=== PATIENT | female | born 1935 | race Caucasian/White ===

== ENCOUNTER 2018-11-17 17:31 | Observation (INO) | payer BC, MEDICARE ==
[2018-11-17 18:13] LABS: Urine Bilirubin Negative (NEGATIVE); Urine Blood 250 /ul (NEGATIVE); Urine Ketone Large mg/dL (NEGATIVE); Urine Protein 100 mg/dL (NEGATIVE); Urine Specific Gravity 1.025 SP.GR. (1.005-1.010); Urine Urobilinogen Normal (NORMAL)
[2018-11-17] MEDS ORDERED: NORMAL SALINE 1,000 ML IV ONE (18:13)
[2018-11-17] MEDS ORDERED: ONDANSETRON HCL/PF 2 MG/ML VIAL IV ONE (18:13)
--- NOTE | 2018-11-17 18:20 | ERNOTE ---
Medical Problem HPI - Narrative Date of Service: 11/17/18 - General Chief Complaint: Nausea/Vomiting Time Seen by Provider: 11/17/18 18:07 Source: patient, family, RN notes reviewed Exam Limitations: no limitations - Immun/Allergies/Home Medications Immunizations: IMMUNIZATION HX Immunizations Up to Date No History of Influenza Vaccine No Hx Pneumococcal Vaccination No Allergies/Adverse Reactions: Allergies Sulfa (Sulfonamide Antibiotics) Allergy (Unknown, Verified 11/02/18 13:05) atorvastatin calcium [From Lipitor] Adverse Reaction (Mild, Verified 11/02/18 13:05) LEG CRAMPS ciprofloxacin Adverse Reaction (Mild, Verified 11/02/18 13:05) JOINT PAIN doxycycline Adverse Reaction (Mild, Verified 11/02/18 13:05) JOINT PAIN Home Medications: HOME MEDICATIONS Cholecalciferol (Vitamin D3) [Vitamin D3] 10,000 unit PO DAILY 05/06/16 [Last Taken Unknown] Magnesium 250 mg PO DAILY 05/06/16 [Last Taken Unknown] Multivit-Min/FA/Lycopen/Lutein [Centrum Silver Tablet] 1 ea PO DAILY 05/06/16 [Last Taken Unknown] Polyethylene Glycol 3350 [Miralax] 0.5 tsp PO DAILY 05/06/16 [Last Taken Unknown] Ondansetron [Zofran Odt] 4 mg PO Q6H PRN #20 tab 11/02/16 [Last Taken Unknown] Nitrofurantoin/Nitrofuran Mac [Macrobid] 100 mg PO Q12H #10 cap 10/25/18 [Last Taken Unknown] - History of Present History Narrative: Mikki is a 83 year old female brought to the ED by her family for nausea and vomiting that began 2 days ago. She is also having urinary frequency and chills. She has urinated several times since arrival, all in small amounts. Date (Duration): 11/15/18 Review of Systems - Review of Systems Constitutional: Present: chills, malaise, decreased activity level EYE: Present: no symptoms reported ENT: Absent: nose congestion, sore throat Respiratory: Present: cough. Absent: shortness of breath Cardiology: Absent: chest pain, palpitations Gastrointestinal/Abdominal: Present: nausea, vomiting, eating less, drinking less. Absent: diarrhea, abdominal pain Genitourinary: Present: frequency, dysuria. Absent: hematuria Musculoskeletal: Present: joint pain - hip - chronic. Absent: back pain Skin: Absent: lesions, lumps, change in color Neurological: Absent: headache, dizziness/light-headedness Endocrine: Present: no symptoms reported Hematologic/Lymphatic: Present: no symptoms reported Psych: Present: no symptoms reported Medical History (Last Reviewed 11/17/18 @ 18:19 by Michelle Magdaleno NP) Peptic ulcer (Chronic) Onset Date: ~1973 with stomach resection with vagotomy Osteoporosis (Chronic) Onset Date: ~2004 Hypothyroidism (Chronic) Onset Date: Unknown Hyperthyroidism (Chronic) Onset Date: ~2003 Hyperlipidemia (Chronic) Onset Date: ~2004 History of bone density study (Chronic) Onset Date: ~02/2002 t -2.8 sp, -2.6 hip Anemia (Chronic) Onset Date: ~2003 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 Radius distal fracture Onset Date: ~12/02/11 right Surgical History: Surgical History (Last Reviewed 11/17/18 @ 18:19 by Michelle Magdaleno NP) H/O abdominal surgery Onset Date: ~1973 Stomach resection with vagotomy right peptic ulcer disease History of bladder suspension procedure Onset Date: ~01/1986 History of gastric surgery Onset Date: ~03/22/12 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 Dr. Salgado History of hysterectomy Onset Date: ~08/1982 Hx laparoscopic cholecystectomy Onset Date: ~03/22/12 Family History: Family History (Last Reviewed 11/17/18 @ 18:19 by Michelle Magdaleno NP) Father , age 72 Heart disease Mother , age 100 CVA (cerebral vascular accident) CHF (congestive heart failure) Hypertension CAD (coronary artery disease) Grandmother Cancer Grandfather Heart disease Social History: Preferred Language Japanese Do you have any anglican or Yes: religion cultural preference? Smoking Status Never smoker Have you smoked in the past 12 No months Do you dip or chew tobacco No Abuse History No History of abuse Psych History No pertinent hx Alcohol Use none Drug Use none (Last Updated 11/02/18 @ 13:49 by Kim Ibarra MD) No Social History Section defined Physical Exam - Physical Exam General Appearance: Present: alert, mild distress, thin, other - Pleasant, talkative but clearly does not feel well Head Exam: Present: normal inspection Eye Exam: Normal inspection: bilateral Neck: Present: normal inspection, nontender, supple Respiratory: Present: no respiratory distress, normal breath sounds, no accessory muscle use, lungs clear Cardiovascular/Chest: Present: no murmur, normal peripheral pulses, tachycardia Gastrointestinal/Abdominal: Present: nontender, nondistended, soft Back Exam: Present: normal inspection, normal range of motion, no CVA tenderness Extremity Exam: Present: normal inspection, normal range of motion Neurological Exam: Present: alert, oriented, normal mood/affect, no motor/sensory deficits Skin Exam: Present: normal color, warm/dry Progress - Results and Orders Patient's Lab Results:: I have reviewed the patient's lab results. - Vital Signs Patient's Vital Signs:: I have reviewed the patient's vital signs. Vital Signs: Vital Signs 11/17/18 17:32 Temperature 36.7 C Pulse Rate 105 H Respiratory Rate 16 Blood Pressure 130/61 O2 Sat by Pulse Oximetry 96 - Progress/Reassessment Chief Complaint: Nausea/Vomiting Progress:: Improved Plan - Plan Plan: UA shows an infection, likely pyelonephritis given the vomiting and elevated WBC at 20,800. She also has mild dehydration and hyponatremia. Lactic acid is normal. Dr. Richards was contacted and the patient will be admitted to observation status on med/surg. She will be started on IV Levaquin. Her last urine culture from approximately a month ago grew Klebsiella. Urine and blood cultures are pending. Departure Clinical Impression: Acute pyelonephritis - Departure Disposition: Still a patient Condition: Stable Referrals: Gilbert Faustin MD [Primary Care Provider] -
[2018-11-17 18:26] LABS: Urine Appearance Clear (CLEAR); Urine Bacteria 3+; Urine Color Yellow; Urine Nitrite Positive (NEGATIVE); Urine RBC 25-50 /hpf (0-5)
[2018-11-17 18:31] LABS: Hematocrit 34.4 % (37.0-47.0); Mean Cell Volume 92.2 fl (78-100); Mean Corpuscular Hemoglobin 32.2 pg (27-31); Mean Corpuscular Hgb Conc 34.9 g/dl (32-36); Mean Platelet Volume 9.3 fl (8-12.5); Neutrophil # 19.7 K/mm3 (1.3-6.0); Neutrophil % 90.3 % (42-75.0); Platelet Count 248 K/mm3 (150-450); Red Blood Count 3.73 M/mm3 (4.2-5.4); Red Cell Distribution Width 12.6 % (11.5-14.0); White Blood Count 21.8 K/mm3 (4.0-10.5)
[2018-11-17 18:42] LABS: Albumin * 2.7 gm/dl (3.4-5.0); Anion Gap 15.2 mmol/L (6.8-13.8); BUN/Creatinine Ratio 18.2 (9.0-21.6); Ca. Corrected For Albumin 9.4 mg/dL (8.4-10.2); Calcium * 8.7 mg/dL (7.9-10.9); Carbon Dioxide 23.4 mmol/L (24-32.6); Potassium 3.6 mmol/L (3.4-4.6); Total Protein 6.8 gm/dL (6.2-8.2)
[2018-11-17] MEDS ORDERED: PHENAZOPYRIDINE HCL 100 MG TABLET PO ONE (19:15)
[2018-11-17] MEDS ORDERED: LEVOFLOXACIN IN DEXTROSE 5 % 750 MG/150 ML BAG IV ONE (19:16)
[2018-11-17] MEDS ORDERED: NORMAL SALINE 1,000 ML IV PRN (21:55)
[2018-11-18] MEDS ORDERED: BISACODYL 5 MG TABLET.DR PO PRN (08:17)
[2018-11-18] MEDS ORDERED: ONDANSETRON 4 MG TAB.RAPDIS PO PRN (08:17)
[2018-11-18 08:36] LABS: Hematocrit 32.6 % (37.0-47.0); Hemoglobin 10.9 gm/dL (12.5-16.0); Mean Cell Volume 94.8 fl (78-100); Mean Corpuscular Hemoglobin 31.7 pg (27-31); Mean Corpuscular Hgb Conc 33.4 g/dl (32-36); Mean Platelet Volume 9.3 fl (8-12.5); Neutrophil # 15.3 K/mm3 (1.3-6.0); Neutrophil % 90.9 % (42-75.0); Platelet Count 236 K/mm3 (150-450); Red Blood Count 3.44 M/mm3 (4.2-5.4); Red Cell Distribution Width 12.7 % (11.5-14.0); White Blood Count 16.9 K/mm3 (4.0-10.5)
[2018-11-18 08:54] LABS: Albumin * 2.2 gm/dl (3.4-5.0); Anion Gap 12.1 mmol/L (6.8-13.8); BUN/Creatinine Ratio 13.8 (9.0-21.6); Bilirubin, Total 0.5 mg/dL (0.0-1.1); Ca. Corrected For Albumin 9.2 mg/dL (8.4-10.2); Calcium * 8.1 mg/dL (7.9-10.9); Carbon Dioxide 25.6 mmol/L (24-32.6); Potassium 2.7 mmol/L (3.4-4.6); Total Protein 5.9 gm/dL (6.2-8.2)
[2018-11-18] MEDS ORDERED: PRENATAL VITS96/IRON FUM/FOLIC 1 TAB TABLET PO SCH (09:00)
[2018-11-18] MEDS ORDERED: LEVOTHYROXINE SODIUM 100 MCG TABLET PO SCH ×2 (09:00→11:00)
[2018-11-18] MEDS ORDERED: MAGNESIUM OXIDE 400 MG TABLET PO SCH (09:00)
--- NOTE | 2018-11-18 09:08 | HP ---
Chief Complaint - Chief Complaint Date of Service: 11/18/18 Time of Service: 07:50 Chief Complaint: Dysuria with urgency and frequency, fever or shaking chills, UTI per UA, suspected pyelonephritis History of Present Illness: Mrs. Potter and had fever and shaking chills about 3 days prior to presentation to the emergency room. She was not febrile on arrival but was hypotensive. She also started having nausea and vomiting 2 days before arrival. She was found to be dehydrated in the emergency room. She was given IV fluids and is feeling much better this morning. Medical History (Last Reviewed 11/17/18 @ 21:07 by Jana Sanderson RN) Peptic ulcer (Chronic) Onset Date: ~1973 with stomach resection with vagotomy Osteoporosis (Chronic) Onset Date: ~2004 Hypothyroidism (Chronic) Onset Date: Unknown Hyperthyroidism (Chronic) Onset Date: ~2003 Hyperlipidemia (Chronic) Onset Date: ~2004 History of bone density study (Chronic) Onset Date: ~02/2002 t -2.8 sp, -2.6 hip Anemia (Chronic) Onset Date: ~2003 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 Radius distal fracture Onset Date: ~12/02/11 right Surgical History: Surgical History (Last Reviewed 11/17/18 @ 21:06 by Jana Sanderson RN) H/O abdominal surgery Onset Date: ~1973 Stomach resection with vagotomy right peptic ulcer disease History of bladder suspension procedure Onset Date: ~01/1986 History of gastric surgery Onset Date: ~03/22/12 partial gastric GIST and cholecystectomy for pT2, 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 Dr. Salgado History of hysterectomy Onset Date: ~08/1982 Hx laparoscopic cholecystectomy Onset Date: ~03/22/12 Family History: Family History (Last Reviewed 11/17/18 @ 21:06 by Jana Sanderson RN) Father , age 72 Heart disease Mother , age 100 CVA (cerebral vascular accident) CHF (congestive heart failure) Hypertension CAD (coronary artery disease) Grandmother Cancer Grandfather Heart disease Social History: Patient Lives/Resources Home Utilized Occupation Retired Preferred Language Norwegian Do you have any mu-ism or Yes: Shinto cultural preference? Smoking Status Never smoker Have you smoked in the past 12 No months Do you dip or chew tobacco No Abuse History No History of abuse Psych History No pertinent hx Alcohol Use none Drug Use none (Last Updated 11/02/18 @ 13:49 by Kim Ibarra MD) No Social History Section defined Review Of Systems (GEN) - Review of Systems Generalized/Overall Review: Present: Weakness, Chills, Fever, Malaise, Weight loss EENTM: Present: No Symptoms Reported Respiratory: Present: No Symptoms Reported Cardiac: Present: No Symptoms Reported Abdominal: Present: No Symptoms Reported Genitourinary: Present: Burning, Urgency, Frequency, Hematuria, Dysuria Musculoskeletal: Present: No Symptoms Reported Neurological: Present: No Symptoms Reported, Weakness Skin: Present: Rash - Diffusely neck down Endocrine: Present: No Symptoms Reported Misc: All systems neg except as marked - Diffusely neck down and extremely pruritic. Immunizations: IMMUNIZATION HX Immunizations Up to Date No History of Influenza Vaccine No Hx Pneumococcal Vaccination No Allergies/Adverse Reactions: Allergies Allergy/AdvReac Type Severity Reaction Status Date / Time Sulfa (Sulfonamide Allergy Unknown Verified 11/02/18 13:05 Antibiotics) atorvastatin calcium AdvReac Mild LEG CRAMPS Verified 11/02/18 13:05 [From Lipitor] ciprofloxacin AdvReac Mild JOINT PAIN Verified 11/02/18 13:05 doxycycline AdvReac Mild JOINT PAIN Verified 11/02/18 13:05 Home Medications: HOME MEDICATIONS Magnesium 250 mg PO DAILY 05/06/16 [Last Taken Unknown] Ondansetron [Zofran Odt] 4 mg PO Q6H PRN #20 tab 11/02/16 [Last Taken Unknown] Bisacodyl [Dulcolax] 5 mg PO DAILY PRN 11/17/18 [Last Taken Unknown] Levothyroxine Sodium [Synthroid] 100 mcg PO DAILY 11/17/18 [Last Taken Unknown] Pnv with Ca,No.72/Iron,Carb/FA [ Plus Iron Tablet] 1 ea PO DAILY 11/17/18 [Last Taken Unknown] Propylene Glycol/Peg 400 [Systane 0.3-0.4% Eye Drops] 1 drp OPHTHALMIC (EYE) QID 11/17/18 [Last Taken Unknown] Exam - Exam Vital Signs: Vital Signs - Last Taken Temp 36.8 C 11/18/18 08:10 Pulse 84 12/22/18 08:10 Resp 16 11/18/18 08:10 BP 106/59 11/18/18 08:10 Pulse Ox 99 11/18/18 08:10 Constitutional: Present: Alert, Oriented x3, Cooperative, Well developed, Elderly, Thin and frail ENT Exam: Present: normal ENT inspection, hearing grossly normal, pharynx normal, TMs normal Eye Exam: bilateral eye: normal inspection, PERRL, EOMI Neck: Present: non-tender, full range of motion, supple, normal inspection, trachea midline Back Exam: Present: normal inspection, CVA tenderness (L) - With a positive Jim's Breasts: Present: Exam deferred Respiratory: Present: chest non-tender, lungs clear, normal breath sounds, no respiratory distress, no accessory muscle use, respiratory distress, decreased breath sounds Cardiovascular/Chest: Present: normal peripheral pulses, regular rate, rhythm, no chest tenderness, no edema, no gallop, no JVD, no murmur, no rub Peripheral Pulses: carotid (R): 2+, carotid (L): 2+, radial (R): 2+, radial (L): 2+ Abdomen: Present: Normal bowel sounds, soft, suprapubic tenderness /Rectal: Present: Exam deferred Extremity: Present: normal range of motion, non-tender, normal inspection, no pedal edema, no calf tenderness, normal capillary refill Skin Exam: Present: normal color, warm/dry, no cyanosis Lymphatic: Present: no adenopathy Neurologic: Present: burr grinder II-XII nml as tested Appearance: Present: appropriate appearance Eye contact: Present: cooperative, good eye contact Thoughts: Present: normal thought pattern Diagnostic Studies: Abnormal Lab Results 11/17/18 11/17/18 11/17/18 Range/Units 18:07 18:21 18:21 WBC 21.8 H (4.0-10.5) K/mm3 RBC 3.73 L (4.2-5.4) M/mm3 Hgb 12.0 L (12.5-16.0) gm/dL Hct 34.4 L (37.0-47.0) % MCH 32.2 H (27-31) pg Immature Gran % (Auto) 0.80 H (0.001-0.429) % Immature Gran # (Auto) 0.18 H (0.000-0.0310) K/mm3 Neutrophils % 90.3 H (42-75.0) % Lymphocytes % 2.2 L (20-51) % Neutrophils # 19.7 H (1.3-6.0) K/mm3 Lymphocytes # 0.47 L (1.5-3.5) k/mm3 Monocytes # 1.4 H (0.0-1.0) k/mm3 Sodium 128 L (132-142) mmol/L Plasma Sodium 129 L (130-142) mmol/L Chloride 93 L (97-106) mmol/L Carbon Dioxide 23.4 L (24-32.6) mmol/L Anion Gap 15.2 H (6.8-13.8) mmol/L Random Glucose 146 H (70-110) mg/dL AST 63 H (0-48) U/L ALT 73 H (19-67) U/L Albumin 2.7 L (3.4-5.0) gm/dl Urine Protein 100 H (NEGATIVE) mg/dL Urine Blood 250 H (NEGATIVE) /ul Urine Nitrate Positive H (NEGATIVE) Prot Sulfosalicylic Acd 4+ H (0) mg/dL Ur Leukocyte Esterase 75 H (NEGATIVE) /ul Urine RBC 25-50 H (0-5) /hpf Urine WBC 5-10 H (0-5) /hpf Urine Bacteria 3+ H (NONE) 11/18/18 Range/Units 08:30 WBC 16.9 H D (4.0-10.5) K/mm3 RBC 3.44 L (4.2-5.4) M/mm3 Hgb 10.9 L (12.5-16.0) gm/dL Hct 32.6 L (37.0-47.0) % MCH 31.7 H (27-31) pg Immature Gran % (Auto) 0.50 H (0.001-0.429) % Immature Gran # (Auto) 0.08 H (0.000-0.0310) K/mm3 Neutrophils % 90.9 H (42-75.0) % Lymphocytes % 3.3 L (20-51) % Neutrophils # 15.3 H (1.3-6.0) K/mm3 Lymphocytes # 0.56 L (1.5-3.5) k/mm3 Monocytes # (0.0-1.0) k/mm3 Sodium (132-142) mmol/L Plasma Sodium (130-142) mmol/L Chloride (97-106) mmol/L Carbon Dioxide (24-32.6) mmol/L Anion Gap (6.8-13.8) mmol/L Random Glucose (70-110) mg/dL AST (0-48) U/L ALT (19-67) U/L Albumin (3.4-5.0) gm/dl Urine Protein (NEGATIVE) mg/dL Urine Blood (NEGATIVE) /ul Urine Nitrate (NEGATIVE) Prot Sulfosalicylic Acd (0) mg/dL Ur Leukocyte Esterase (NEGATIVE) /ul Urine RBC (0-5) /hpf Urine WBC (0-5) /hpf Urine Bacteria (NONE) Microbiology 11/17/18 18:00 Urine Culture - Preliminary Urine,Clean Catch Gram Negative Bacilli Laboratory Results WBC 16.9 K/mm3 (4.0-10.5) H D 11/18/18 08:30 RBC 3.44 M/mm3 (4.2-5.4) L 11/18/18 08:30 Hgb 10.9 gm/dL (12.5-16.0) L 11/18/18 08:30 Hct 32.6 % (37.0-47.0) L 11/18/18 08:30 MCV 94.8 fl (78-100) 11/18/18 08:30 MCH 31.7 pg (27-31) H 11/18/18 08:30 MCHC 33.4 g/dl (32-36) 11/18/18 08:30 RDW 12.7 % (11.5-14.0) 11/18/18 08:30 Plt Count 236 K/mm3 (150-450) 11/18/18 08:30 MPV 9.3 fl (8-12.5) 11/18/18 08:30 Immature Gran % (Auto) 0.50 % (0.001-0.429) H 11/18/18 08:30 Immature Gran # (Auto) 0.08 K/mm3 (0.000-0.0310) H 11/18/18 08:30 Neutrophils % 90.9 % (42-75.0) H 11/18/18 08:30 Lymphocytes % 3.3 % (20-51) L 11/18/18 08:30 Monocytes % 5.2 % (0.0-9) 11/18/18 08:30 Eosinophils % 0.0 % (0.0-3.0) 11/18/18 08:30 Basophils % 0.1 % (0.0-1.0) 11/18/18 08:30 Nucleated RBC % 0.0 k/mm3 (0-1) 11/18/18 08:30 Neutrophils # 15.3 K/mm3 (1.3-6.0) H 11/18/18 08:30 Lymphocytes # 0.56 k/mm3 (1.5-3.5) L 11/18/18 08:30 Monocytes # 0.9 k/mm3 (0.0-1.0) 11/18/18 08:30 Eosinophils # 0.0 k/mm3 (0.0-0.7) 11/18/18 08:30 Absolute Basophils 0.0 k/mm3 (0.0-0.1) 11/18/18 08:30 Sodium 128 mmol/L (132-142) L 11/17/18 18:21 Plasma Sodium 129 mmol/L (130-142) L 11/17/18 18:21 Potassium 3.6 mmol/L (3.4-4.6) 11/17/18 18:21 Chloride 93 mmol/L (97-106) L 11/17/18 18:21 Carbon Dioxide 23.4 mmol/L (24-32.6) L 11/17/18 18:21 Anion Gap 15.2 mmol/L (6.8-13.8) H 11/17/18 18:21 BUN 14 mg/dL (3-23) D 11/17/18 18:21 Creatinine 0.77 mg/dL (0.4-1.4) 11/17/18 18:21 Est GFR (Non-Af Amer) 76 mL/min (60-130) 11/17/18 18:21 BUN/Creatinine Ratio 18.2 (9.0-21.6) 11/17/18 18:21 Random Glucose 146 mg/dL (70-110) H 11/17/18 18:21 Lactic Acid, Venous 1.1 mmol/L (0.4-2.0) 11/17/18 18:21 Calcium 8.7 mg/dL (7.9-10.9) 11/17/18 18:21 Calcium Adj for Albumin 9.4 mg/dL (8.4-10.2) 11/17/18 18:21 Total Bilirubin 1.0 mg/dL (0.0-1.1) 11/17/18 18:21 AST 63 U/L (0-48) H 11/17/18 18:21 ALT 73 U/L (19-67) H 11/17/18 18:21 Alkaline Phosphatase 119 U/L (50-170) 11/17/18 18:21 Total Protein 6.8 gm/dL (6.2-8.2) 11/17/18 18:21 Albumin 2.7 gm/dl (3.4-5.0) L 11/17/18 18:21 Urine Color Yellow 11/17/18 18: Urine Appearance Clear (CLEAR) 11/17/18 18: Urine pH 6.0 pH (5.0-7.0) 11/17/18 18: Ur Specific [place] 1.025 SP.GR. (1.005-1.010) 11/17/18 18:07 Urine Protein 100 mg/dL (NEGATIVE) H 11/17/18 18:07 Urine Glucose (UA) Negative mg/dL (NEGATIVE) 11/17/18 18: Urine Ketones Large mg/dL (NEGATIVE) 11/17/18 18:07 Urine Blood 250 /ul (NEGATIVE) H 11/17/18 18:07 Urine Nitrate Positive (NEGATIVE) H 11/17/18 18:07 Urine Bilirubin Negative mg/dl (NEGATIVE) 11/17/18 18:07 Prot Sulfosalicylic Acd 4+ mg/dL (0) H 11/17/18 18:07 Urine Urobilinogen Normal EU/dl (NORMAL) 11/17/18 18:07 Ur Leukocyte Esterase 75 /ul (NEGATIVE) H 11/17/18 18:07 Urine RBC 25-50 /hpf (0-5) H 11/17/18 18:07 Urine WBC 5-10 /hpf (0-5) H 11/17/18 18:07 Ur Epithelial Cells 0-5 /hpf (0-5) 11/17/18 18:07 Urine Bacteria 3+ (NONE) H 11/17/18 18:07 Urine Culture Comments Culture to follow 11/17/18 18:07 Assessment/Plan - Narrative Narrative: 1. IV antibiotics 2. IV fluid volume replacement 3. Progress diet as tolerated 4. Ambulating halls to determine mobility - Assessment/Plan (1) Acute pyelonephritis Problem: Acute (2) Dehydration Problem: Acute (3) Dizziness Problem: Acute (4) EXCORIATION DERMATITIS Problem: Chronic
[2018-11-18] MEDS: POLYVINYL ALCOHOL 150 DROP BTL OP SCH ×2 (09:22→12:43)
[2018-11-18] MEDS ORDERED: POTASSIUM CHLORIDE 20 MEQ TABLET.SA PO SCH (09:45)
[2018-11-18] MEDS ORDERED: POTASSIUM CHLORIDE 20 MEQ in NORMAL SALINE 1,000 ML IV SCH (09:45)
[2018-11-18 14:11] LABS: Anion Gap 12.5 mmol/L (6.8-13.8); BUN/Creatinine Ratio 19.1 (9.0-21.6); Carbon Dioxide 22.6 mmol/L (24-32.6); Estimated Creat Clear 56.4; Potassium 3.1 mmol/L (3.4-4.6)
[2018-11-18] MEDS ORDERED: POTASSIUM CHLORIDE 20 MEQ TABLET.SA PO ONE (14:57)
[2018-11-18] MEDS ORDERED: LEVOFLOXACIN 500 MG TABLET PO ONE (15:12)
[2018-11-18 15:23] VITALS: BP 117/66
--- NOTE | 2018-11-18 15:25 | DS ---
(1) Acute pyelonephritis Problem: Acute (2) Dehydration Problem: Resolved (3) Dizziness Problem: Resolved (4) EXCORIATION DERMATITIS Problem: Chronic (5) Hypokalemia Problem: Acute Description of Stay: Jayne Potter is an 83-year-old female admitted for acute pyelonephritis. She had a urinary tract infection and was treated as an outpat ient but did not complete her course of antibiotics and then relapsed. On presentation to ER she was dehydrated, lightheaded, weak, and having signs and symptoms of urinary tract infection. She did not complain of flank pain until I performed a [place] and she is tender on the left side. Her urine and blood cultures were both positive for a gram-negative bacillus and sensitivity is still pending. She was started on IV Levaquin yesterday and I will continue her on by mouth Levaquin to give one today and then 1 daily for 8 more days at home. She was also hypokalemic this morning. She is received 20 mEq of potassium chloride by mouth and approximately 20 mEq IV. The potassium was 2.7 this morning and is now at 3.1 which meets discharge criteria. Disposition is improved. Prognosis is good. Procedures Performed: none Results and Findings: Pending Mircobiology Results 11/17/18 18:24 Blood Blood Culture - Preliminary 11/17/18 18:00 Urine,Clean Catch Urine Culture - Preliminary Gram Negative Bacilli Lab Pending Results 11/17/18 18:07: Urine Color Yellow, Urine Appearance Clear, Urine pH 6.0, Ur Specific [place] 1.025, Urine Protein 100 H, Urine Glucose (UA) Negative, Urine Ketones Large, Urine Blood 250 H, Urine Nitrate Positive H, Urine Bilirubin Negative, Prot Sulfosalicylic Acd 4+ H, Urine Urobilinogen Normal, Ur Leukocyte Esterase 75 H, Urine RBC 25-50 H, Urine WBC 5-10 H, Ur Epithelial Cells 0-5, Urine Bacteria 3+ H, Urine Culture Comments Culture to follow 11/17/18 18:21: WBC 21.8 H, RBC 3.73 L, Hgb 12.0 L, Hct 34.4 L, MCV 92.2, MCH 32.2 H, MCHC 34.9, RDW 12.6, Plt Count 248, MPV 9.3, Immature Gran % (Auto) 0.80 H, Immature Gran # (Auto) 0.18 H, Neutrophils % 90.3 H, Lymphocytes % 2.2 L, Monocytes % 6.6, Eosinophils % 0.0, Basophils % 0.1, Nucleated RBC % 0.0, Neutrophils # 19.7 H, Lymphocytes # 0.47 L, Monocytes # 1.4 H, Eosinophils # 0.0, Absolute Basophils 0.0 11/17/18 18:21: Sodium 128 L, Plasma Sodium 129 L, Potassium 3.6, Chloride 93 L, Carbon Dioxide 23.4 L, Anion Gap 15.2 H, BUN 14 D, Creatinine 0.77, Est GFR (Non-Af Amer) 76, BUN/Creatinine Ratio 18.2, Random Glucose 146 H, Calcium 8.7, Calcium Adj for Albumin 9.4, Total Bilirubin 1.0, AST 63 H, ALT 73 H, Alkaline Phosphatase 119, Total Protein 6.8, Albumin 2.7 L 11/17/18 18:21: Lactic Acid, Venous 1.1 11/18/18 08:30: WBC 16.9 H D, RBC 3.44 L, Hgb 10.9 L, Hct 32.6 L, MCV 94.8, MCH 31.7 H, MCHC 33.4, RDW 12.7, Plt Count 236, MPV 9.3, Immature Gran % (Auto) 0.50 H, Immature Gran # (Auto) 0.08 H, Neutrophils % 90.9 H, Lymphocytes % 3.3 L, Monocytes % 5.2, Eosinophils % 0.0, Basophils % 0.1, Nucleated RBC % 0.0, Neutrophils # 15.3 H, Lymphocytes # 0.56 L, Monocytes # 0.9, Eosinophils # 0.0, Absolute Basophils 0.0 11/18/18 08:30: Sodium 134, Plasma Sodium 135, Potassium 2.7 L D, Chloride 99, Carbon Dioxide 25.6, Anion Gap 12.1, BUN 13, Creatinine 0.94, Est GFR (Non-Af Amer) 60 D, BUN/Creatinine Ratio 13.8, Random Glucose 153 H, Calcium 8.1, Calcium Adj for Albumin 9.2, Total Bilirubin 0.5, AST 35, ALT 54, Alkaline Phosphatase 104, Total Protein 5.9 L, Albumin 2.2 L 11/18/18 13:59: Sodium 132, Plasma Sodium 132, Potassium 3.1 L, Chloride 100, Carbon Dioxide 22.6 L, Anion Gap 12.5, BUN 13, Creatinine 0.68, Est GFR (Non-Af Amer) 88 D, BUN/Creatinine Ratio 19.1, Random Glucose 119 H, Calcium 8.0 Discharge Location: Home Disposition: Home self-care Condition: Stable Discharge Activity: Activity as tolerated Discharge Diet: General/regular food Referrals: Gilbert Faustin MD [Primary Care Provider] - Additional Patient Instructions (free text): See primary care provider in 2 weeks Complete Home Medications List: Complete Home Medication List: RX: Magnesium 250 mg PO DAILY 05/06/16 RX: Ondansetron [Zofran Odt] 4 mg PO Q6H PRN #20 tab 11/02/16 RX: Bisacodyl [Dulcolax] 5 mg PO DAILY PRN 11/17/18 RX: Levothyroxine Sodium [Synthroid] 100 mcg PO DAILY 11/17/18 RX: Pnv with Ca,No.72/Iron,Carb/FA [ Plus Iron Tablet] 1 ea PO DAILY 11/17/18 RX: Propylene Glycol/Peg 400 [Systane 0.3-0.4% Eye Drops] 1 drp OPHTHALMIC (EYE) QID 11/17/18 RX: Levofloxacin [Levaquin] 500 mg PO DAILY #10 tab 11/18/18 RX: Potassium Chloride [K-Dur] 20 meq PO DAILY #14 tablet.sa 11/18/18
== END 2018-11-18 16:10 | disposition home or self-care (01) ==
LOC: ER 17:31 → MS 17:31
PROVIDERS: ADMIT Family Medicine; ATTEND Internal Medicine
DX: N10 Acute pyelonephritis
CPT/HCPCS: 36415; 80048; 80053; 81001; 83605; 85025; 87040; 87077; 87086; 87186; 96365; 96366; 99285; G0378